=== PATIENT | female | born 1975 | race Two or more races ===

== ENCOUNTER 2016-08-02 11:51 | Emergency (ER) | payer MEDICAID ==
[~2016-08-02] VITALS: Ht 162.6 cm; Wt 108.5 kg
[~2016-08-02 11:51] MED LIST: NO MEDS
[2016-08-02 11:58] VITALS: Ht 162.6 cm; Wt 108.5 kg
[2016-08-02] MEDS ORDERED: IBUPROFEN 600 MG TAB PO ONE (12:30)
--- NOTE | 2016-08-02 13:31 | RADRPT ---
PROCEDURE: XR Thoracic Spine. CLINICAL INDICATION: Back pain. TECHNIQUE: Three views. Frontal, lateral, and lateral swimmers. COMPARISON: None available FINDINGS: There is normal stature and alignment of the vertebrae. There is no fracture. There is no lytic or blastic lesion. The disk height is normal. Small osteophytes are present throughout. The paravertebral soft tissues are unremarkable. IMPRESSION: 1. Mild degenerative change. 2. No acute abnormality. RPTAT: QQ .Abdi Michelle MD, MD Date Time Electronically viewed and signed by .Abdi Michelle MD, MD on 08/02/2016 13:31 .R/
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
[2016-08-02] MEDS ORDERED: IBUP-1542 PO (13:56)
[2016-08-02] MEDS ORDERED: DIAZ5TAB4 PO (13:56)
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
== END 2016-08-02 14:09 | disposition home or self-care (01) ==
LOC: FTE 11:51
DX: S29.012A Strain of muscle and tendon of back wall of thorax, initial encounter (principal); S16.1XXA Strain of muscle, fascia and tendon at neck level, initial encounter; V49.40XA Driver injured in collision with unspecified motor vehicles in traffic accident, initial encounter
CPT/HCPCS: 72040; 72072; Z7502; Z7610